=== PATIENT | female | born 1955 | race Caucasian/White ===

== ENCOUNTER → 2024-04-25 13:09 | Outpatient (REF) | payer MEDICARE, BC, SELFPAY ==
[2024-04-25 14:45] LABS: % Basophils 0.6 % (0-2); % Eosinophils 2.3 % (0-6); % Immature Granulocytes 0.2 % (0-0.5); % Lymphocytes 31.7 % (20.5-51.1); % Monocytes 7.8 % (1.7-9.3); % Neutrophils 57.4 % (42.2-75.2); Absolute Eosinophils 0.2 10^3/uL (0-0.7); Absolute Lymphocytes 2.1 10^3/uL (1.2-3.4); Absolute Monocytes 0.5 10^3/uL (0.1-0.6); Absolute Neutrophils 3.8 10^3/uL (1.4-6.5); Hematocrit 36.7 % (37.0-47.0); Hemoglobin 12.5 g/dL (12.0-16.0); Mean Corp Hgb Conc. 34.1 g/dL (33.0-37.0); Mean Corpuscular Hgb 32.4 pg (27.0-31.0); Mean Corpuscular Volume 95.1 fL (81.0-99.0); Mean Platelet Volume 9.6 fL (7.4-10.4); Nucleated Red Blood Cells % 0 %; Platelet Count 232 10^3/uL (130-400); Red Blood Cell Count 3.86 10^6/uL (4.20-5.40); Red Cell Dist. Width 13.2 % (11.5-14.5); White Blood Cell Count 6.7 10^3/uL (4.8-10.8)
[2024-04-25 15:22] LABS: Blood Urea Nitrogen 16 mg/dl (7-17); Calcium 9.4 mg/dl (8.4-10.2); Carbon Dioxide 28 mmol/L (22-30); Chloride 105 mmol/L (98-107); Glucose 83 mg/dl (70-99); Potassium 4.1 mmol/L (3.5-5.1); Sodium 140 mmol/L (135-145); eGFR > 60.00
== END ==
LOC: HWLAB 13:09
PROVIDERS: ATTENDING PHYSICIAN Orthopaedic Surgery; FAMILY PHYSICIAN Internal Medicine
DX: Z01.818 Encounter for other preprocedural examination (principal)
CPT/HCPCS: 36415; 80048; 85025; 93005

== ENCOUNTER → 2024-07-19 10:02 | Outpatient (REF) | payer MEDICARE, BC, SELFPAY ==
[2024-07-19 12:40] LABS: % Basophils 0.7 % (0-2); % Eosinophils 2.6 % (0-6); % Immature Granulocytes 0.3 % (0-0.5); % Monocytes 7.5 % (1.7-9.3); % Neutrophils 51.9 % (42.2-75.2); Absolute Basophils 0.1 10^3/uL (0-0.2); Absolute Eosinophils 0.2 10^3/uL (0-0.7); Absolute Lymphocytes 2.7 10^3/uL (1.2-3.4); Absolute Monocytes 0.6 10^3/uL (0.1-0.6); Absolute Neutrophils 3.8 10^3/uL (1.4-6.5); Hematocrit 32.5 % (37.0-47.0); Hemoglobin 10.6 g/dL (12.0-16.0); Mean Corp Hgb Conc. 32.6 g/dL (33.0-37.0); Mean Corpuscular Hgb 30.4 pg (27.0-31.0); Mean Corpuscular Volume 93.1 fL (81.0-99.0); Mean Platelet Volume 9.2 fL (7.4-10.4); Nucleated Red Blood Cells % 0 %; Platelet Count 307 10^3/uL (130-400); Red Blood Cell Count 3.49 10^6/uL (4.20-5.40); Red Cell Dist. Width 14.6 % (11.5-14.5); White Blood Cell Count 7.4 10^3/uL (4.8-10.8)
[2024-07-19 13:02] LABS: ALT (SGPT) 16 U/L (0-35); AST (SGOT) 27 U/L (14-36); Albumin 4.1 g/dl (3.5-5.0); Alkaline Phosphatase 70 U/L (38-126); Blood Urea Nitrogen 17 mg/dl (7-17); Calcium 9.6 mg/dl (8.4-10.2); Carbon Dioxide 29 mmol/L (22-30); Chloride 106 mmol/L (98-107); Erythrocyte Sed Rate 27 mm/hour (0-20); Glucose 87 mg/dl (70-99); HDL Cholesterol 80 mg/dl; LDL Cholesterol, Calculated 131 mg/dl; Sodium 144 mmol/L (135-145); Total Bilirubin 0.7 mg/dl (0.2-1.3); Total Cholesterol 230 mg/dl (50-199); Total Protein 6.6 g/dl (6.3-8.2); Triglyceride 96 mg/dl (10-149); Very Low Density Lipoprotein 19 mg/dl (0-30); eGFR > 60.00
== END ==
LOC: HWLAB 10:02
PROVIDERS: ATTENDING PHYSICIAN Internal Medicine Rheumatology; OTHER PHYSICIAN Internal Medicine; OTHER PHYSICIAN Internal Medicine Rheumatology
DX: M05.79 Rheumatoid arthritis with rheumatoid factor of multiple sites without organ or systems involvement (principal); Z79.899 Other long term (current) drug therapy; E78.5 Hyperlipidemia, unspecified
CPT/HCPCS: 36415; 80053; 80061; 85025; 85652; 86140

== ENCOUNTER → 2024-08-28 12:03 | Outpatient (REF) | payer MEDICARE, BC, SELFPAY ==
[2024-08-28 16:17] LABS: % Basophils 0.4 % (0-2); % Eosinophils 2.4 % (0-6); % Immature Granulocytes 0.4 % (0-0.5); % Lymphocytes 19.6 % (20.5-51.1); % Monocytes 7.4 % (1.7-9.3); % Neutrophils 69.8 % (42.2-75.2); Absolute Eosinophils 0.2 10^3/uL (0-0.7); Absolute Lymphocytes 1.9 10^3/uL (1.2-3.4); Absolute Monocytes 0.7 10^3/uL (0.1-0.6); Absolute Neutrophils 6.7 10^3/uL (1.4-6.5); Hematocrit 37.3 % (37.0-47.0); Hemoglobin 12.2 g/dL (12.0-16.0); Mean Corp Hgb Conc. 32.7 g/dL (33.0-37.0); Mean Corpuscular Hgb 30.1 pg (27.0-31.0); Mean Corpuscular Volume 92.1 fL (81.0-99.0); Mean Platelet Volume 10.1 fL (7.4-10.4); Nucleated Red Blood Cells % 0 %; Platelet Count 253 10^3/uL (130-400); Red Blood Cell Count 4.05 10^6/uL (4.20-5.40); Red Cell Dist. Width 15.7 % (11.5-14.5); White Blood Cell Count 9.7 10^3/uL (4.8-10.8)
[2024-08-28 17:38] LABS: Blood Urea Nitrogen 20 mg/dl (7-17); Calcium 9.6 mg/dl (8.4-10.2); Carbon Dioxide 25 mmol/L (22-30); Chloride 104 mmol/L (98-107); Glucose 84 mg/dl (70-99); Potassium 3.9 mmol/L (3.5-5.1); Sodium 144 mmol/L (135-145); eGFR > 60.00
== END ==
LOC: HWLAB 12:03
PROVIDERS: ATTENDING PHYSICIAN Orthopaedic Surgery; FAMILY PHYSICIAN Internal Medicine
DX: Z01.818 Encounter for other preprocedural examination (principal)
CPT/HCPCS: 36415; 80048; 85025

== ENCOUNTER → 2024-11-10 12:59 | Outpatient (REF) | payer MEDICARE, BC, SELFPAY ==
[2024-11-10 15:39] LABS: % Basophils 0.5 % (0-2); % Eosinophils 1.7 % (0-6); % Immature Granulocytes 0.3 % (0-0.5); % Lymphocytes 44.5 % (20.5-51.1); % Monocytes 7.1 % (1.7-9.3); % Neutrophils 45.9 % (42.2-75.2); Absolute Eosinophils 0.2 10^3/uL (0-0.7); Absolute Lymphocytes 3.9 10^3/uL (1.2-3.4); Absolute Monocytes 0.6 10^3/uL (0.1-0.6); Hematocrit 34.3 % (37.0-47.0); Hemoglobin 10.5 g/dL (12.0-16.0); Mean Corp Hgb Conc. 30.6 g/dL (33.0-37.0); Mean Corpuscular Hgb 26.9 pg (27.0-31.0); Mean Corpuscular Volume 87.7 fL (81.0-99.0); Mean Platelet Volume 9.4 fL (7.4-10.4); Nucleated Red Blood Cells % 0 %; Platelet Count 319 10^3/uL (130-400); Red Blood Cell Count 3.91 10^6/uL (4.20-5.40); Red Cell Dist. Width 16.5 % (11.5-14.5); White Blood Cell Count 8.8 10^3/uL (4.8-10.8)
[2024-11-10 15:48] LABS: Erythrocyte Sed Rate 27 mm/hour (0-20)
[2024-11-10 16:05] LABS: ALT (SGPT) 13 U/L (0-35); AST (SGOT) 22 U/L (14-36); Alkaline Phosphatase 77 U/L (38-126); Blood Urea Nitrogen 17 mg/dl (7-17); Calcium 9.6 mg/dl (8.4-10.2); Carbon Dioxide 29 mmol/L (22-30); Chloride 100 mmol/L (98-107); Glucose 93 mg/dl (70-99); Potassium 3.8 mmol/L (3.5-5.1); Sodium 138 mmol/L (135-145); Total Bilirubin 0.5 mg/dl (0.2-1.3); Total Protein 6.9 g/dl (6.3-8.2); eGFR > 60.00
[2024-11-10 16:08] LABS: C-Reactive Protein < 5.00 mg/L (0.0-10.00)
== END ==
LOC: HWLAB 12:59
PROVIDERS: ATTENDING PHYSICIAN Internal Medicine Rheumatology; FAMILY PHYSICIAN Internal Medicine; REFERRING PHYSICIAN Internal Medicine Rheumatology
DX: M06.09 Rheumatoid arthritis without rheumatoid factor, multiple sites (principal); Z79.899 Other long term (current) drug therapy
CPT/HCPCS: 36415; 80053; 85025; 85652; 86140

== ENCOUNTER → 2025-01-10 12:21 | Outpatient (REF) | payer MEDICARE, BC, SELFPAY | LOC: HWWDC 12:21 | PROVIDERS: ATTENDING PHYSICIAN Obstetrics & Gynecology; FAMILY PHYSICIAN Internal Medicine | DX: Z12.31 Encounter for screening mammogram for malignant neoplasm of breast (principal) | CPT/HCPCS: 77063; 77067 ==

== ENCOUNTER → 2025-02-02 11:44 | Outpatient (REF) | payer MEDICARE, BC, SELFPAY ==
[2025-02-02 16:43] LABS: % Basophils 0.5 % (0-2); % Eosinophils 2.2 % (0-6); % Immature Granulocytes 0.1 % (0-0.5); % Lymphocytes 40.7 % (20.5-51.1); % Neutrophils 49.5 % (42.2-75.2); Absolute Eosinophils 0.2 10^3/uL (0-0.7); Absolute Lymphocytes 3.3 10^3/uL (1.2-3.4); Absolute Monocytes 0.6 10^3/uL (0.1-0.6); Hematocrit 32.9 % (37.0-47.0); Hemoglobin 10.4 g/dL (12.0-16.0); Mean Corp Hgb Conc. 31.6 g/dL (33.0-37.0); Mean Corpuscular Hgb 26.3 pg (27.0-31.0); Mean Corpuscular Volume 83.1 fL (81.0-99.0); Mean Platelet Volume 10.1 fL (7.4-10.4); Nucleated Red Blood Cells % 0 %; Platelet Count 288 10^3/uL (130-400); Red Blood Cell Count 3.96 10^6/uL (4.20-5.40)
[2025-02-02 16:49] LABS: ALT (SGPT) 15 U/L (0-35); AST (SGOT) 25 U/L (14-36); Albumin 4.3 g/dl (3.5-5.0); Alkaline Phosphatase 75 U/L (38-126); Blood Urea Nitrogen 19 mg/dl (7-17); Calcium 9.9 mg/dl (8.4-10.2); Carbon Dioxide 26 mmol/L (22-30); Chloride 104 mmol/L (98-107); Glucose 84 mg/dl (70-99); Potassium 4.2 mmol/L (3.5-5.1); Sodium 141 mmol/L (135-145); Total Bilirubin 0.8 mg/dl (0.2-1.3); eGFR > 60.00
[2025-02-02 16:52] LABS: Urine Albumin Negative (Neg - Trace); Urine Bilirubin Negative (Negative); Urine Character Clear (Clear); Urine Glucose Negative (Negative); Urine Ketone Negative (Negative); Urine Leukocyte Negative (Negative); Urine Nitrite Negative (Negative); Urine Occult Blood Negative (Negative); Urine Specific Gravity 1.005 (<1.030); Urine Urobilinogen Negative (Neg - 1+); Urine pH 6.5 (5.0-9.0)
[2025-02-02 16:52] LABS: Erythrocyte Sed Rate 20 mm/hour (0-20)
[2025-02-02 16:53] LABS: Urine Color Straw
[2025-02-02 16:53] LABS: C-Reactive Protein < 5.00 mg/L (0.0-10.00)
[2025-02-02 17:19] LABS: Hepatitis B Surface Antigen Negative (Negative)
[2025-02-02 17:37] LABS: Hepatitis B Surface Antibody Negative; Hepatitis C Antibody Negative (Negative)
[2025-02-02 17:56] LABS: Protein/creatinine Ratio 0.4; Urine Protein 15 mg/dl
[2025-02-02 18:05] LABS: Rheumatoid Agglutinin Less Than 10 IU (<10 IU)
[2025-02-04 23:09] LABS: SSA 52 (Ro)(ENA) Ab, IgG 1 AU/mL (0-40); SSA 60 (Ro)(ENA) Ab, IgG 0 AU/mL (0-40); SSB (La)(ENA) Ab, IgG 0 AU/mL (0-40)
[2025-02-05 00:54] LABS: Complement C3 99 mg/dl (88-165)
[2025-02-05 01:21] LABS: Smith/RNP (ENA), IgG 4 Units (0-19)
[2025-02-05 02:22] LABS: ANA, IgG Reflex to HEp-2 None Detected (None Detected)
[2025-02-05 02:37] LABS: CCP Antibody IgG/IgA >250 Units (0-19)
== END ==
LOC: HWLAB 11:44
PROVIDERS: ATTENDING PHYSICIAN Student in an Organized Health Care Education/Training Program; FAMILY PHYSICIAN Internal Medicine; REFERRING PHYSICIAN Internal Medicine Rheumatology
DX: B02.9 Zoster without complications (principal); E55.9 Vitamin D deficiency, unspecified; G47.9 Sleep disorder, unspecified; G56.01 Carpal tunnel syndrome, right upper limb; G89.29 Other chronic pain; L40.50 Arthropathic psoriasis, unspecified; L40.9 Psoriasis, unspecified; M06.09 Rheumatoid arthritis without rheumatoid factor, multiple sites; M15.9 Polyosteoarthritis, unspecified; M16.0 Bilateral primary osteoarthritis of hip; M17.12 Unilateral primary osteoarthritis, left knee; M25.431 Effusion, right wrist; M25.512 Pain in left shoulder; M25.552 Pain in left hip; M25.562 Pain in left knee; M32.8 Other forms of systemic lupus erythematosus; M54.16 Radiculopathy, lumbar region; M54.2 Cervicalgia; M67.912 Unspecified disorder of synovium and tendon, left shoulder; M79.7 Fibromyalgia; M81.0 Age-related osteoporosis without current pathological fracture; M85.89 Other specified disorders of bone density and structure, multiple sites; R74.01 Elevation of levels of liver transaminase levels; R76.8 Other specified abnormal immunological findings in serum; Z11.1 Encounter for screening for respiratory tuberculosis; Z13.29 Encounter for screening for other suspected endocrine disorder; Z79.52 Long term (current) use of systemic steroids; Z79.899 Other long term (current) drug therapy
CPT/HCPCS: 36415; 80053; 81003; 82570; 84156; 85025; 85652; 86038; 86140; 86160; 86200; 86225; 86235; 86430; 86704; 86706; 86803; 87340

== ENCOUNTER → 2025-02-05 09:50 | Outpatient (REF) | payer MEDICARE, BC, SELFPAY ==
[2025-02-07 06:16] LABS: Quantiferon Mitogen minus NIL 9.91 IU/mL; Quantiferon NIL 0.09 IU/mL; Quantiferon Plus TB1 minus NIL 0.02 IU/mL (<=0.34); Quantiferon Plus TB2 minus NIL 0.02 IU/mL (<=0.34); Quantiferon TB Gold Plus Negative (Negative)
== END ==
LOC: HWLAB 09:50
PROVIDERS: ATTENDING PHYSICIAN Student in an Organized Health Care Education/Training Program; FAMILY PHYSICIAN Internal Medicine
DX: B02.9 Zoster without complications (principal); E55.9 Vitamin D deficiency, unspecified; G47.9 Sleep disorder, unspecified; G56.01 Carpal tunnel syndrome, right upper limb; G89.29 Other chronic pain; L40.50 Arthropathic psoriasis, unspecified; L40.9 Psoriasis, unspecified; M06.09 Rheumatoid arthritis without rheumatoid factor, multiple sites; M15.9 Polyosteoarthritis, unspecified; M16.0 Bilateral primary osteoarthritis of hip; M17.12 Unilateral primary osteoarthritis, left knee; M25.431 Effusion, right wrist; M25.512 Pain in left shoulder; M25.552 Pain in left hip; M25.562 Pain in left knee; M32.8 Other forms of systemic lupus erythematosus; M54.16 Radiculopathy, lumbar region; M54.2 Cervicalgia; M67.912 Unspecified disorder of synovium and tendon, left shoulder; M79.7 Fibromyalgia; M81.0 Age-related osteoporosis without current pathological fracture; M85.89 Other specified disorders of bone density and structure, multiple sites; R74.01 Elevation of levels of liver transaminase levels; R76.8 Other specified abnormal immunological findings in serum; Z11.1 Encounter for screening for respiratory tuberculosis; Z13.29 Encounter for screening for other suspected endocrine disorder; Z79.52 Long term (current) use of systemic steroids; Z79.899 Other long term (current) drug therapy
CPT/HCPCS: 36415; 86480

== ENCOUNTER → 2025-02-22 15:55 | Outpatient (REF) | payer MEDICARE, BC, SELFPAY | LOC: HWRAD 15:55 | PROVIDERS: ATTENDING PHYSICIAN Podiatrist Foot & Ankle Surgery | DX: M86.471 Chronic osteomyelitis with draining sinus, right ankle and foot (principal) | CPT/HCPCS: 73630 ==

== ENCOUNTER → 2025-03-30 12:00 | Outpatient (REF) | payer MEDICARE, BC, SELFPAY ==
[2025-03-30 16:04] LABS: % Basophils 0.3 % (0-2); % Eosinophils 1.7 % (0-6); % Immature Granulocytes 0.3 % (0-0.5); % Lymphocytes 26.9 % (20.5-51.1); % Monocytes 5.9 % (1.7-9.3); % Neutrophils 64.9 % (42.2-75.2); Absolute Eosinophils 0.2 10^3/uL (0-0.7); Absolute Lymphocytes 2.5 10^3/uL (1.2-3.4); Absolute Monocytes 0.6 10^3/uL (0.1-0.6); Absolute Neutrophils 6.1 10^3/uL (1.4-6.5); Hematocrit 33.9 % (37.0-47.0); Hemoglobin 10.9 g/dL (12.0-16.0); Mean Corp Hgb Conc. 32.2 g/dL (33.0-37.0); Mean Corpuscular Hgb 27.5 pg (27.0-31.0); Mean Corpuscular Volume 85.6 fL (81.0-99.0); Mean Platelet Volume 9.8 fL (7.4-10.4); Nucleated Red Blood Cells % 0 %; Platelet Count 282 10^3/uL (130-400); Red Blood Cell Count 3.96 10^6/uL (4.20-5.40); Red Cell Dist. Width 18.7 % (11.5-14.5); White Blood Cell Count 9.4 10^3/uL (4.8-10.8)
== END ==
LOC: HWLAB 12:00
PROVIDERS: ATTENDING PHYSICIAN Internal Medicine; OTHER PHYSICIAN Internal Medicine Cardiovascular Disease; REFERRING PHYSICIAN Student in an Organized Health Care Education/Training Program
DX: R00.2 Palpitations (principal); D64.9 Anemia, unspecified
CPT/HCPCS: 36415; 85025

== ENCOUNTER → 2025-04-06 13:01 | Outpatient (REF) | payer MEDICARE, BC, SELFPAY ==
[2025-04-06 16:00] LABS: Iron 64 ug/dl (37-170)
[2025-04-06 16:09] LABS: Percent Saturation 16 % (20-50); Total Iron Binding Capacity 398 ug/dl (265-497)
[2025-04-06 16:22] LABS: Ferritin 11.7 ng/ml (11.1-264.0)
== END ==
LOC: HWLAB 13:01
PROVIDERS: ATTENDING PHYSICIAN Internal Medicine; FAMILY PHYSICIAN Internal Medicine
DX: D64.9 Anemia, unspecified (principal)
CPT/HCPCS: 36415; 82728; 83540; 83550

== ENCOUNTER → 2025-04-09 12:07 | Outpatient (REF) | payer MEDICARE, BC, SELFPAY | LOC: HWLAB 12:07 | PROVIDERS: ATTENDING PHYSICIAN Internal Medicine | DX: D64.9 Anemia, unspecified (principal) | CPT/HCPCS: 83520 ==

== ENCOUNTER → 2025-04-30 11:12 | Outpatient (REF) | payer MEDICARE, BC, SELFPAY ==
[2025-04-30 12:35] LABS: % Basophils 0.6 % (0-2); % Eosinophils 2.8 % (0-6); % Immature Granulocytes 0.1 % (0-0.5); % Lymphocytes 40.4 % (20.5-51.1); % Monocytes 8.4 % (1.7-9.3); % Neutrophils 47.7 % (42.2-75.2); Absolute Eosinophils 0.2 10^3/uL (0-0.7); Absolute Lymphocytes 2.9 10^3/uL (1.2-3.4); Absolute Monocytes 0.6 10^3/uL (0.1-0.6); Absolute Neutrophils 3.4 10^3/uL (1.4-6.5); Hematocrit 33.7 % (37.0-47.0); Hemoglobin 10.6 g/dL (12.0-16.0); Mean Corp Hgb Conc. 31.5 g/dL (33.0-37.0); Mean Corpuscular Hgb 26.8 pg (27.0-31.0); Mean Corpuscular Volume 85.3 fL (81.0-99.0); Mean Platelet Volume 9.3 fL (7.4-10.4); Nucleated Red Blood Cells % 0 %; Platelet Count 275 10^3/uL (130-400); Red Blood Cell Count 3.95 10^6/uL (4.20-5.40); Red Cell Dist. Width 18.2 % (11.5-14.5); White Blood Cell Count 7.1 10^3/uL (4.8-10.8)
[2025-04-30 13:08] LABS: Erythrocyte Sed Rate 43 mm/hour (0-20)
[2025-04-30 14:38] LABS: ALT (SGPT) 17 U/L (0-35); AST (SGOT) 24 U/L (14-36); Albumin 4.2 g/dl (3.5-5.0); Alkaline Phosphatase 72 U/L (38-126); Blood Urea Nitrogen 15 mg/dl (7-17); Calcium 9.6 mg/dl (8.4-10.2); Carbon Dioxide 25 mmol/L (22-30); Chloride 110 mmol/L (98-107); Glucose 84 mg/dl (70-99); Potassium 4.3 mmol/L (3.5-5.1); Sodium 142 mmol/L (135-145); Total Bilirubin 0.6 mg/dl (0.2-1.3); eGFR > 60.00
[2025-04-30 14:38] LABS: C-Reactive Protein < 5.00 mg/L (0.0-10.00)
[2025-04-30 14:54] LABS: Vitamin D, 25-OH*** 82.7 ng/mL (30-80)
== END ==
LOC: RCS 11:12
PROVIDERS: ATTENDING PHYSICIAN Internal Medicine Cardiovascular Disease; FAMILY PHYSICIAN Internal Medicine; OTHER PHYSICIAN Student in an Organized Health Care Education/Training Program
DX: R00.2 Palpitations (principal); R00.0 Tachycardia, unspecified; D84.9 Immunodeficiency, unspecified; E55.9 Vitamin D deficiency, unspecified; L40.50 Arthropathic psoriasis, unspecified; L40.9 Psoriasis, unspecified; M05.9 Rheumatoid arthritis with rheumatoid factor, unspecified; M06.09 Rheumatoid arthritis without rheumatoid factor, multiple sites; M79.4 Hypertrophy of (infrapatellar) fat pad; M81.0 Age-related osteoporosis without current pathological fracture; M85.89 Other specified disorders of bone density and structure, multiple sites; R76.8 Other specified abnormal immunological findings in serum; Z79.52 Long term (current) use of systemic steroids; Z79.899 Other long term (current) drug therapy
CPT/HCPCS: 36415; 80053; 82306; 85025; 85652; 86140; 93306

== ENCOUNTER → 2025-05-17 14:31 | Outpatient (REF) | payer MEDICARE, BC, SELFPAY ==
[2025-05-17 15:27] LABS: Hematocrit 33.3 % (37.0-47.0); Hemoglobin 10.7 g/dL (12.0-16.0); Mean Corp Hgb Conc. 32.1 g/dL (33.0-37.0); Mean Corpuscular Volume 85.2 fL (81.0-99.0); Nucleated Red Blood Cells % 0 %; Platelet Count 274 10^3/uL (130-400); Red Cell Dist. Width 18.4 % (11.5-14.5); Reticulocyte Count 1.0 % (0.4-2.8)
[2025-05-17 15:48] LABS: Urine Character Clear (Clear)
[2025-05-17 16:00] LABS: C-Reactive Protein < 5.00 mg/L (0.0-10.00)
[2025-05-17 16:04] LABS: ALT (SGPT) 16 U/L (0-35); AST (SGOT) 24 U/L (14-36); Albumin 4.4 g/dl (3.5-5.0); Alkaline Phosphatase 75 U/L (38-126); Blood Urea Nitrogen 29 mg/dl (7-17); Calcium 9.9 mg/dl (8.4-10.2); Carbon Dioxide 24 mmol/L (22-30); Chloride 106 mmol/L (98-107); Glucose 95 mg/dl (70-99); Iron 70 ug/dl (37-170); LDH 249 U/L (120-246); Potassium 4.0 mmol/L (3.5-5.1); Sodium 138 mmol/L (135-145); Total Protein 7.4 g/dl (6.3-8.2); eGFR 40.47
[2025-05-17 16:08] LABS: Urine Squamous Cell 0-2 /LPF (Few); Urine Urothelial Cell 0-2 /LPF (FEW)
[2025-05-17 16:09] LABS: Urine Red Blood Cell 0-2 /HPF (0-2); Urine White Cell 0-2 /HPF (0-5)
[2025-05-17 16:13] LABS: Total Iron Binding Capacity 410 ug/dl (265-497)
[2025-05-17 16:35] LABS: Ferritin 11.9 ng/ml (11.1-264.0)
[2025-05-17 17:07] LABS: Folate > 20.0 ng/ml (2.76-20); Vitamin B12 > 1000 pg/ml (239-931)
[2025-05-21 19:43] LABS: ds-DNA Ab, IgG Reflex To Titer 26 IU (0-24)
[2025-05-23 07:02] LABS: ds-DNA Ab, IgG Titer <1:10 (<1:10)
== END ==
LOC: REG 14:31
PROVIDERS: ATTENDING PHYSICIAN Student in an Organized Health Care Education/Training Program; FAMILY PHYSICIAN Internal Medicine; REFERRING PHYSICIAN Nurse Practitioner Primary Care
DX: B02.9 Zoster without complications (principal); D84.9 Immunodeficiency, unspecified; E55.9 Vitamin D deficiency, unspecified; G47.9 Sleep disorder, unspecified; G56.01 Carpal tunnel syndrome, right upper limb; G89.29 Other chronic pain; L40.50 Arthropathic psoriasis, unspecified; L40.9 Psoriasis, unspecified; M05.9 Rheumatoid arthritis with rheumatoid factor, unspecified; M06.09 Rheumatoid arthritis without rheumatoid factor, multiple sites; M15.9 Polyosteoarthritis, unspecified; M16.0 Bilateral primary osteoarthritis of hip; M17.12 Unilateral primary osteoarthritis, left knee; M25.431 Effusion, right wrist; M25.512 Pain in left shoulder; M25.552 Pain in left hip; M32.8 Other forms of systemic lupus erythematosus; M54.16 Radiculopathy, lumbar region; M54.2 Cervicalgia; M67.912 Unspecified disorder of synovium and tendon, left shoulder; M79.7 Fibromyalgia; M81.0 Age-related osteoporosis without current pathological fracture; M85.89 Other specified disorders of bone density and structure, multiple sites; R74.01 Elevation of levels of liver transaminase levels; R76.8 Other specified abnormal immunological findings in serum; Z11.1 Encounter for screening for respiratory tuberculosis; Z13.29 Encounter for screening for other suspected endocrine disorder; Z79.52 Long term (current) use of systemic steroids; Z79.899 Other long term (current) drug therapy; Z91.89 Other specified personal risk factors, not elsewhere classified; D64.9 Anemia, unspecified; D50.9 Iron deficiency anemia, unspecified; D51.9 Vitamin B12 deficiency anemia, unspecified
CPT/HCPCS: 36415; 80053; 81003; 81015; 82570; 82607; 82728; 82746; 83010; 83540; 83550; 83615; 84156; 85025; 85045; 85652; 86140; 86160; 86225; 86256; 86880

== ENCOUNTER → 2025-06-18 13:22 | Outpatient (REF) | payer MEDICARE, BC, SELFPAY ==
[2025-06-18 16:18] LABS: Blood Urea Nitrogen 22 mg/dl (7-17); Calcium 9.2 mg/dl (8.4-10.2); Carbon Dioxide 27 mmol/L (22-30); Chloride 104 mmol/L (98-107); Glucose 86 mg/dl (70-99); Potassium 4.6 mmol/L (3.5-5.1); Sodium 136 mmol/L (135-145); eGFR > 60.00
[2025-06-18 23:19] LABS: Urine Red Blood Cell 0-2 /HPF (0-2); Urine Squamous Cell 0-2 /LPF (Few); Urine White Cell 0-2 /HPF (0-5)
== END ==
LOC: HWLAB 13:22
PROVIDERS: ATTENDING PHYSICIAN Student in an Organized Health Care Education/Training Program; FAMILY PHYSICIAN Internal Medicine
DX: M32.9 Systemic lupus erythematosus, unspecified (principal); N17.9 Acute kidney failure, unspecified
CPT/HCPCS: 36415; 80048; 81015; 82570; 84156; 86225

== ENCOUNTER → 2025-07-03 11:06 | Outpatient (REF) | payer MEDICARE, BC, SELFPAY | LOC: HWRCS 11:06 | PROVIDERS: ATTENDING PHYSICIAN Internal Medicine Cardiovascular Disease; FAMILY PHYSICIAN Internal Medicine | DX: I31.39 Other pericardial effusion (noninflammatory) (principal); R00.2 Palpitations | CPT/HCPCS: 93308 ==

== ENCOUNTER → 2025-07-11 12:51 | Outpatient (REF) | payer MEDICARE, BC, SELFPAY ==
[2025-07-11 16:37] LABS: Hematocrit 37.5 % (37.0-47.0); Hemoglobin 12.4 g/dL (12.0-16.0); Mean Corp Hgb Conc. 33.1 g/dL (33.0-37.0); Mean Corpuscular Volume 89.7 fL (81.0-99.0); Nucleated Red Blood Cells % 0 %; Platelet Count 240 10^3/uL (130-400); Red Cell Dist. Width 21.0 % (11.5-14.5)
[2025-07-11 17:06] LABS: Iron 189 ug/dl (37-170)
[2025-07-11 17:16] LABS: Total Iron Binding Capacity 277 ug/dl (265-497)
[2025-07-11 17:39] LABS: Ferritin 294.0 ng/ml (11.1-264.0)
== END ==
LOC: HWLAB 12:51
PROVIDERS: ATTENDING PHYSICIAN Nurse Practitioner Primary Care; FAMILY PHYSICIAN Internal Medicine; REFERRING PHYSICIAN Student in an Organized Health Care Education/Training Program
DX: D64.9 Anemia, unspecified (principal); D50.9 Iron deficiency anemia, unspecified
CPT/HCPCS: 36415; 82728; 83540; 83550; 85025

== ENCOUNTER → 2025-07-23 11:54 | Outpatient (REF) | payer MEDICARE, BC, SELFPAY ==
[2025-07-23 16:42] LABS: Hematocrit 37.8 % (37.0-47.0); Hemoglobin 12.4 g/dL (12.0-16.0); Mean Corp Hgb Conc. 32.8 g/dL (33.0-37.0); Mean Corpuscular Volume 91.3 fL (81.0-99.0); Nucleated Red Blood Cells % 0 %; Platelet Count 234 10^3/uL (130-400); Red Cell Dist. Width 20.8 % (11.5-14.5)
[2025-07-23 16:57] LABS: Urine Character Clear (Clear)
[2025-07-23 17:01] LABS: ALT (SGPT) 20 U/L (0-35); AST (SGOT) 29 U/L (14-36); Albumin 4.5 g/dl (3.5-5.0); Alkaline Phosphatase 73 U/L (38-126); Blood Urea Nitrogen 20 mg/dl (7-17); Calcium 9.5 mg/dl (8.4-10.2); Carbon Dioxide 27 mmol/L (22-30); Chloride 100 mmol/L (98-107); Glucose 82 mg/dl (70-99); HDL Cholesterol 102 mg/dl; LDL Cholesterol, Calculated 157 mg/dl; Potassium 4.1 mmol/L (3.5-5.1); Sodium 134 mmol/L (135-145); Total Protein 7.2 g/dl (6.3-8.2); Very Low Density Lipoprotein 23 mg/dl (0-30); eGFR > 60.00
[2025-07-23 17:03] LABS: C-Reactive Protein < 5.00 mg/L (0.0-10.00)
[2025-07-23 18:22] LABS: Urine Red Blood Cell 0-2 /HPF (0-2); Urine Squamous Cell 0-2 /LPF (Few); Urine White Cell 0-2 /HPF (0-5)
[2025-07-26 01:28] LABS: ds-DNA Ab, IgG Reflex To Titer 16 IU (0-24)
== END ==
LOC: HWLAB 11:54
PROVIDERS: ATTENDING PHYSICIAN Student in an Organized Health Care Education/Training Program; FAMILY PHYSICIAN Internal Medicine
DX: E78.5 Hyperlipidemia, unspecified (principal); E89.40 Asymptomatic postprocedural ovarian failure; D84.9 Immunodeficiency, unspecified; L40.9 Psoriasis, unspecified; M06.9 Rheumatoid arthritis, unspecified; M32.9 Systemic lupus erythematosus, unspecified; M79.7 Fibromyalgia; Z13.220 Encounter for screening for lipoid disorders; Z51.81 Encounter for therapeutic drug level monitoring
CPT/HCPCS: 36415; 80053; 80061; 81003; 81015; 82570; 84156; 85025; 85652; 86140; 86160; 86225

== ENCOUNTER → 2025-09-03 13:47 | Outpatient (REF) | payer MEDICARE, BC, SELFPAY ==
[2025-09-03 16:26] LABS: Hematocrit 34.6 % (37.0-47.0); Hemoglobin 11.1 g/dL (12.0-16.0); Mean Corp Hgb Conc. 32.1 g/dL (33.0-37.0); Mean Corpuscular Volume 102.4 fL (81.0-99.0); Nucleated Red Blood Cells % 0 %; Platelet Count 321 10^3/uL (130-400); Red Cell Dist. Width 17.9 % (11.5-14.5)
[2025-09-03 16:45] LABS: ALT (SGPT) 22 U/L (0-35); AST (SGOT) 29 U/L (14-36); Albumin 3.9 g/dl (3.5-5.0); Alkaline Phosphatase 106 U/L (38-126); Blood Urea Nitrogen 25 mg/dl (7-17); Calcium 9.4 mg/dl (8.4-10.2); Carbon Dioxide 27 mmol/L (22-30); Chloride 107 mmol/L (98-107); Glucose 118 mg/dl (70-99); Iron 108 ug/dl (37-170); Potassium 4.2 mmol/L (3.5-5.1); Sodium 136 mmol/L (135-145); Total Protein 6.5 g/dl (6.3-8.2); eGFR > 60.00
[2025-09-03 16:54] LABS: Total Iron Binding Capacity 276 ug/dl (265-497)
[2025-09-03 17:21] LABS: Ferritin 144.0 ng/ml (11.1-264.0)
== END ==
LOC: HWLAB 13:47
PROVIDERS: ATTENDING PHYSICIAN Internal Medicine Hematology & Oncology; FAMILY PHYSICIAN Internal Medicine; REFERRING PHYSICIAN Student in an Organized Health Care Education/Training Program
DX: D64.9 Anemia, unspecified (principal); D50.9 Iron deficiency anemia, unspecified
CPT/HCPCS: 36415; 80053; 82728; 83540; 83550; 85025

== ENCOUNTER → 2025-10-29 13:04 | Outpatient (REF) | payer MEDICARE, BC, SELFPAY | LOC: HWRAD 13:04 | PROVIDERS: ATTENDING PHYSICIAN Student in an Organized Health Care Education/Training Program; FAMILY PHYSICIAN Internal Medicine | DX: E89.40 Asymptomatic postprocedural ovarian failure (principal); B02.9 Zoster without complications; D84.9 Immunodeficiency, unspecified; E55.9 Vitamin D deficiency, unspecified; G47.9 Sleep disorder, unspecified; G56.01 Carpal tunnel syndrome, right upper limb; G89.29 Other chronic pain; L40.50 Arthropathic psoriasis, unspecified; L40.9 Psoriasis, unspecified; M05.9 Rheumatoid arthritis with rheumatoid factor, unspecified; M06.09 Rheumatoid arthritis without rheumatoid factor, multiple sites; M15.9 Polyosteoarthritis, unspecified; M16.0 Bilateral primary osteoarthritis of hip; M17.12 Unilateral primary osteoarthritis, left knee; M25.431 Effusion, right wrist; M25.512 Pain in left shoulder; M25.552 Pain in left hip; M25.562 Pain in left knee; M32.8 Other forms of systemic lupus erythematosus; M54.16 Radiculopathy, lumbar region; M54.2 Cervicalgia; M79.7 Fibromyalgia; M81.0 Age-related osteoporosis without current pathological fracture; M85.89 Other specified disorders of bone density and structure, multiple sites; R76.89 Other specified abnormal immunological findings in serum; Z11.1 Encounter for screening for respiratory tuberculosis; Z13.29 Encounter for screening for other suspected endocrine disorder; Z79.52 Long term (current) use of systemic steroids; Z79.899 Other long term (current) drug therapy; Z91.89 Other specified personal risk factors, not elsewhere classified | CPT/HCPCS: 77080; 77081 ==

== ENCOUNTER → 2025-11-05 11:57 | Outpatient (REF) | payer MEDICARE, BC, SELFPAY ==
[2025-11-05 15:24] LABS: Urine Character Clear (Clear)
[2025-11-05 15:35] LABS: ALT (SGPT) 19 U/L (0-35); AST (SGOT) 28 U/L (14-36); Albumin 4.3 g/dl (3.5-5.0); Alkaline Phosphatase 79 U/L (38-126); Blood Urea Nitrogen 18 mg/dl (7-17); Calcium 9.4 mg/dl (8.4-10.2); Carbon Dioxide 28 mmol/L (22-30); Chloride 104 mmol/L (98-107); Glucose 82 mg/dl (70-99); Iron 121 ug/dl (37-170); Potassium 4.0 mmol/L (3.5-5.1); Sodium 138 mmol/L (135-145); Total Protein 7.2 g/dl (6.3-8.2); eGFR > 60.00
[2025-11-05 15:36] LABS: Urine Red Blood Cell 0-2 /HPF (0-2); Urine White Cell 0-2 /HPF (0-5)
[2025-11-05 15:39] LABS: C-Reactive Protein < 5.00 mg/L (0.0-10.00)
[2025-11-05 15:39] LABS: Hematocrit 38.7 % (37.0-47.0); Hemoglobin 13.0 g/dL (12.0-16.0); Mean Corp Hgb Conc. 33.6 g/dL (33.0-37.0); Mean Corpuscular Volume 98.5 fL (81.0-99.0); Nucleated Red Blood Cells % 0 %; Platelet Count 276 10^3/uL (130-400); Red Cell Dist. Width 12.7 % (11.5-14.5)
[2025-11-05 15:44] LABS: Total Iron Binding Capacity 308 ug/dl (265-497)
[2025-11-05 16:14] LABS: Ferritin 95.5 ng/ml (11.1-264.0)
== END ==
LOC: HWLAB 11:57
PROVIDERS: ATTENDING PHYSICIAN Internal Medicine Hematology & Oncology; FAMILY PHYSICIAN Internal Medicine; OTHER PHYSICIAN Internal Medicine Rheumatology; REFERRING PHYSICIAN Student in an Organized Health Care Education/Training Program
DX: D64.9 Anemia, unspecified (principal); D50.9 Iron deficiency anemia, unspecified; B02.9 Zoster without complications; D84.9 Immunodeficiency, unspecified; E55.9 Vitamin D deficiency, unspecified; F19.20 Other psychoactive substance dependence, uncomplicated; G47.9 Sleep disorder, unspecified; G56.01 Carpal tunnel syndrome, right upper limb; G89.29 Other chronic pain; I31.39 Other pericardial effusion (noninflammatory); L40.50 Arthropathic psoriasis, unspecified; L40.9 Psoriasis, unspecified; M05.9 Rheumatoid arthritis with rheumatoid factor, unspecified; M06.9 Rheumatoid arthritis, unspecified; M15.9 Polyosteoarthritis, unspecified; M16.0 Bilateral primary osteoarthritis of hip; M17.12 Unilateral primary osteoarthritis, left knee; M25.431 Effusion, right wrist; M25.512 Pain in left shoulder; M25.552 Pain in left hip; M25.562 Pain in left knee; M32.8 Other forms of systemic lupus erythematosus; M32.9 Systemic lupus erythematosus, unspecified; M54.16 Radiculopathy, lumbar region; M54.2 Cervicalgia; M67.912 Unspecified disorder of synovium and tendon, left shoulder; M79.7 Fibromyalgia; M81.0 Age-related osteoporosis without current pathological fracture; M85.89 Other specified disorders of bone density and structure, multiple sites; R74.01 Elevation of levels of liver transaminase levels; Z11.1 Encounter for screening for respiratory tuberculosis; Z13.220 Encounter for screening for lipoid disorders; Z13.29 Encounter for screening for other suspected endocrine disorder; Z51.81 Encounter for therapeutic drug level monitoring; Z79.52 Long term (current) use of systemic steroids; Z79.899 Other long term (current) drug therapy
CPT/HCPCS: 36415; 80053; 81003; 81015; 82570; 82728; 83540; 83550; 84156; 85025; 85652; 86140; 86160; 86225; 87086